=== PATIENT | male | born 1975 | race Caucasian/White ===

== ENCOUNTER 2021-04-08 09:45 | Emergency (ER) | payer BC ==
[~2021-04-08] VITALS: Ht 183 cm; Wt 113.4 kg
--- NOTE | 2021-04-08 10:37 | Diagnostic Imaging Report ---
CLINICAL INDICATION: Patient rolled right ankle today. Patient has ankle pain. EXAMS: 1: X-ray of the right tibia and fibula, 2 views. 2: X-ray of the right ankle, 3 views. COMPARISON: None. FINDINGS: There is a segmental fracture of the distal diaphysis of the fibula and distal one/third to one/half of the fibular diaphysis. There is slight lateral displacement of the distal fracture fragment and medial displacement of the most proximal fracture fragment. There is slight posterior apex angulation noted in the fracture region. There is chronic appearing calcification seen distal to the medial malleolar region. There is asymmetry of the ankle mortise with widening of the medial mortise joint region and widening of the syndesmotic joint measuring roughly 11 mm. There are calcifications seen adjacent to the plantar aspect of the mid foot on the lateral view of the ankle. Donor sites are not seen. I am unable to exclude fracture fragments. There is amorphous calcification seen posteriorly adjacent to the posterior malleolus region with donor site unknown and chronicity unknown. There is no other fracture involving the proximal fibula or involving the tibia. The medial malleolus is intact. The visualized portions of the knee are unremarkable. There is a hypertrophic calcaneal spur at the Achilles attachment. IMPRESSION: 1: There is a slightly displaced segmental fracture involving the distal fibular diaphysis. 2: There is abnormal widening of the medial ankle mortise joint and widening of the syndesmotic joint, concerning for ligamentous injury. 3: There are small calcifications seen adjacent to the plantar aspect of the midfoot. Donor sites are not seen. Small fracture fragments cannot be completely excluded. A CT scan of the ankle may help better evaluate. 4: There is amorphous calcification seen posteriorly adjacent to the posterior malleolar region of unknown age. Dictated by: Dictated on workstation # [id number]
--- NOTE | 2021-04-08 11:34 | Diagnostic Imaging Report ---
Clinical indication: Preop chest x-ray for right ankle fracture Exam: Portable chest x-ray upright view. Comparisons: None. Findings: Lungs/pleura: Lungs are clear. There is no pneumothorax. There is no pleural effusion. Mediastinum: Unremarkable. Pulmonary vasculature: Unremarkable. Heart: Unremarkable. Bones/extrathoracic soft tissue: Anterior cervical disk fusion hardware is partially visualized. Impression: There is no radiographic evidence of acute cardiopulmonary process. Dictated by: Dictated on workstation # [id number]
[2021-04-08 11:48] LABS: BASOPHILS # (AUTO) 0.1 10^3/uL (0.0-0.1); BASOPHILS % (AUTO) 1 % (0-10); EOSINOPHILS # (AUTO) 0.1 10^3/uL (0.0-0.3); EOSINOPHILS % (AUTO) 1 % (0-10); HEMATOCRIT 48 % (40-54); HEMOGLOBIN 16.3 g/dL (13.3-17.7); LYMPHOCYTES % (AUTO) 13 % (12-44); MEAN CORPUSCULAR HEMOGLOBIN 29 pg (25-34); MEAN CORPUSCULAR HGB CONC 34 g/dL (32-36); MEAN CORPUSCULAR VOLUME 85 fL (80-99); MEAN PLATELET VOLUME 10.2 fL (9.0-12.2); MONOCYTES % (AUTO) 6 % (0-12); NEUTROPHILS # (AUTO) 12.9 10^3/uL (1.8-7.8); NEUTROPHILS % (AUTO) 80 % (42-75); PLATELET COUNT 285 10^3/uL (130-400); WHITE BLOOD COUNT 16.3 10^3/uL (4.3-11.0)
[2021-04-08 11:49] LABS: ALBUMIN 4.5 GM/DL (3.2-4.5); POTASSIUM 4.4 MMOL/L (3.6-5.0)
[2021-04-08 11:50] LABS: CALCIUM 9.6 MG/DL (8.5-10.1)
[2021-04-08 11:51] LABS: INR 0.9 (0.8-1.4); PROTHROMBIN TIME PATIENT 12.7 SEC (12.2-14.7); TOTAL PROTEIN 7.7 GM/DL (6.4-8.2)
[2021-04-08 11:53] LABS: BILIRUBIN,TOTAL 0.4 MG/DL (0.1-1.0)
[2021-04-08 11:55] LABS: CREATININE SERUM 1.01 MG/DL (0.60-1.30)
[2021-04-08 12:19] LABS: BAND NEUTROPHILS 0 %; BASOPHILS % (MANUAL) 0 %; EOSINOPHILS % (MANUAL) 1 %; LYMPHOCYTES % (MANUAL) 18 %; MONOCYTES % (MANUAL) 4 %; NEUTROPHILS % (MANUAL) 77 %
[2021-04-08 12:20] LABS: RBC MORPH NORMAL
[2021-04-08] MEDS ORDERED: HYDROcodone/APAP 5 MG/325 MG (LORTAB) TAB PO ONE (12:45)
[2021-04-08] MEDS ORDERED: ACHD5005 PO (13:08)
--- NOTE | 2021-04-08 13:08 | ED Lower Extremity ---
General Chief Complaint: Lower Extremity Stated Complaint: R ANKLE INJ Nursing Triage Note: PT TO FT1 VIA WC WITH C/O RT ANKLE PAIN AFTER FALL. PT REPORTS HE FELL AT 0900 THIS MORNING WHEN HE ACCIDENTALLY STEPPED ON A PIPE W L FOOT AND USED RT LEG TO TRY TO CATCH HIMSELF. Source: patient Exam Limitations: no limitations History of Present Illness Date Seen by Provider: Apr 08, 2021 Time Seen by Provider: 09:50 Initial Comments This 46-year-old gentleman presents to the emergency room with complaints of right ankle pain and swelling after slipping and falling backward onto his foot and ankle while working at home. He has marked swelling of the right ankle with a generalized pain in the ankle region. He denies any other injuries. Allergies and Home Medications Allergies Coded Allergies: No Known Drug Allergies (Unverified , 09/13/12) Home Medications Hydrocodone/Acetaminophen 1 Each Tablet, 1-2 TAB PO Q4H PRN for PAIN-MODERATE (5-7) Prescribed by: CHIDI ADAMS on 04/08/21 1309 Patient Home Medication List Home Medication List Reviewed: Yes Review of Systems Constitutional: no symptoms reported EENTM: no symptoms reported Respiratory: no symptoms reported Cardiovascular: no symptoms reported Gastrointestinal: no symptoms reported Genitourinary: no symptoms reported Musculoskeletal: see HPI Skin: no symptoms reported Psychiatric/Neurological: No Symptoms Reported Past Chgaswo-Crgjus-Jzlhxf Hx Patient Social History Tobacco Use?: Yes Tobacco type used: Cigarettes Smoking Status: Current Everyday Smoker Substance use?: No Alcohol Use?: No Pt feels they are or have been: No Past Medical History Surgeries: No Respiratory: No Cardiac: No Neurological: No Reproductive Disorders: No Genitourinary: No Gastrointestinal: No Musculoskeletal: No Endocrine: No HEENT: No Cancer: No Psychosocial: No Physical Exam Vital Signs Vital Signs - First Documented 04/08/21 09:51 Temp 36.4 Pulse 81 Resp 18 B/P (MAP) 167/110 (129) Pulse Ox 97 O2 Delivery Room Air Capillary Refill : Less Than 3 Seconds Height, Weight, BMI Height: '" Weight: lbs. oz. kg; 33.00 BMI Method: General Appearance: WD/WN, no apparent distress HEENT: normal ENT inspection Respiratory: normal breath sounds, no respiratory distress Knees: right knee non-tender, right knee normal inspection, right knee normal range of motion, right knee no evidence of injury Ankles: right ankle bone tenderness, right ankle limited range of motion, right ankle pain, right ankle soft tissue tenderness, right ankle other Feet: right foot non-tender, right foot normal inspection, right foot normal range of motion, right foot no evidence of injury, right foot other (Palpable pedal pulse. Sensation intact. 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, no motor/sensory deficits, alert, normal mood/affect, oriented x 3 Skin: normal color, warm/dry Progress/Results/Core Measures Results/Orders Lab Results Laboratory Tests Test 04/08/21 11:30 Range/Units White Blood Count 16.3 H 4.3-11.0 10^3/uL Red Blood Count 5.63 H 4.30-5.52 10^6/uL Hemoglobin 16.3 13.3-17.7 g/dL Hematocrit 48 40-54 % Mean Corpuscular Volume 85 80-99 fL Mean Corpuscular Hemoglobin 29 25-34 pg Mean Corpuscular Hemoglobin Concent 34 32-36 g/dL Red Cell Distribution Width 13.2 10.0-14.5 % Platelet Count 285 130-400 10^3/uL Mean Platelet Volume 10.2 9.0-12.2 fL Immature Granulocyte % (Auto) 0 % Neutrophils (%) (Auto) 80 H 42-75 % Lymphocytes (%) (Auto) 13 12-44 % Monocytes (%) (Auto) 6 0-12 % Eosinophils (%) (Auto) 1 0-10 % Basophils (%) (Auto) 1 0-10 % Neutrophils # (Auto) 12.9 H 1.8-7.8 10^3/uL Lymphocytes # (Auto) 2.0 1.0-4.0 10^3/uL Monocytes # (Auto) 1.0 0.0-1.0 10^3/uL Eosinophils # (Auto) 0.1 0.0-0.3 10^3/uL Basophils # (Auto) 0.1 0.0-0.1 10^3/uL Immature Granulocyte # (Auto) 0.1 0.0-0.1 10^3/uL Neutrophils % (Manual) 77 % Lymphocytes % (Manual) 18 % Monocytes % (Manual) 4 % Eosinophils % (Manual) 1 % Basophils % (Manual) 0 % Band Neutrophils 0 % Blood Morphology Comment NORMAL Prothrombin Time 12.7 12.2-14.7 SEC INR Comment 0.9 0.8-1.4 Activated Partial Thromboplast Time 29 24-35 SEC Sodium Level 138 135-145 MMOL/L Potassium Level 4.4 3.6-5.0 MMOL/L Chloride Level 106 98-107 MMOL/L Carbon Dioxide Level 19 L 21-32 MMOL/L Anion Gap 13 5-14 MMOL/L Blood Urea Nitrogen 13 7-18 MG/DL Creatinine 1.01 0.60-1.30 MG/DL Estimat Glomerular Filtration Rate 79 BUN/Creatinine Ratio 13 Glucose Level 110 H 70-105 MG/DL Calcium Level 9.6 8.5-10.1 MG/DL Corrected Calcium 9.2 8.5-10.1 MG/DL Total Bilirubin 0.4 0.1-1.0 MG/DL Aspartate Amino Transf (AST/SGOT) 17 5-34 U/L Alanine Aminotransferase (ALT/SGPT) 24 0-55 U/L Alkaline Phosphatase 78 40-136 U/L Total Protein 7.7 6.4-8.2 GM/DL Albumin 4.5 3.2-4.5 GM/DL My Orders Orders - CHIDI SKAGGS MD Ankle, Right, 3 Views (04/08/21 09:59) Tibia/Fibula, Right, 2 Views (04/08/21 10:07) Ed Iv/Invasive Line Start (04/08/21 11:11) Ekg Tracing (04/08/21 11:11) Cbc With Automated Diff (04/08/21 11:11) Comprehensive Metabolic Panel (04/08/21 11:11) Protime With Inr (04/08/21 11:11) Partial Thromboplastin Time (04/08/21 11:11) Chest 1 View, Ap/Pa Only (04/08/21 11:11) Manual Differential (04/08/21 11:30) Hydrocodone/Apap 5/325 Tablet (Lortab 5 (04/08/21 12:45) Vital Signs/I&O 04/08/21 04/08/21 09:51 13:21 Temp 36.4 Pulse 81 78 Resp 18 18 B/P (MAP) 167/110 (129) 155/101 Pulse Ox 97 99 O2 Delivery Room Air Room Air Blood Pressure Mean: 129 Progress Progress Note : Progress Note Patient was found to have a comminuted mildly displaced fibula fracture but also widening of the ankle mortise. Dr. Andrea was consulted as orthopedist on-call. He recommended surgery. Unfortunately, surgery reportedly could not be performed today due to uncertainty about appropriate hardware pieces in stock. Three-way splint was applied and crutches were provided. Hydrocodone was given for pain. Initial ECG Impression Date: Apr 08, 2021 Initial ECG Impression Time: 11:21 Initial ECG Rate: 76 Initial ECG Rhythm: Normal Sinus Initial ECG Intervals: Normal Initial ECG Impression: Normal Comment Normal sinus rhythm with no ST elevation or depression. No abnormal intervals or axis deviation. Departure Impression Primary Impression: Closed right ankle fracture Qualified Codes: S82.891A - Other fracture of right lower leg, initial encounter for closed fracture Disposition: 01 HOME, SELF-CARE Condition: Improved Departure-Patient Inst. Referrals: NO,LOCAL PHYSICIAN (PCP) Primary Care Physician DISHA ANDREA MD, MICHAEL P MD Patient Instructions: Ankle Fracture, Splint Care Add. Discharge Instructions: Keep the clean and dry. Do not remove the splint. Do not bear weight on the right foot. Use crutches to ambulate. Elevate your foot as much as possible on a soft surface such as a stack of pillows or blankets. Applying ice over the splint may also help reduce pain and swelling. When applying ice do not get the splint wet. Call Dr. Cao or Dr. Andrea as soon as possible to arrange follow-up as you will likely need surgery. Return to care if you have worsening symptoms. Call if you have questions or concerns. Use your pain medication as prescribed. You may wish to use a stool softener while on this pain medication as it may cause constipation. All discharge instructions reviewed with patient and/or family. Voiced understanding. Scripts Hydrocodone/Acetaminophen (Hydrocodone-Acetamin 5-325 mg) 1 Each Tablet 1-2 TAB PO Q4H PRN for PAIN-MODERATE (5-7), #40 TAB Prov: CHIDI SKAGGS MD 04/08/21 Copy Copies To 1: SANTA CAO MD Copies To 2: DISHA ANDREA MD, JOSHUA T MD Apr 08, 2021 13:08
[2021-04-08 13:21] VITALS: BP 155/101
== END 2021-04-08 13:21 | disposition home or self-care (01) ==
LOC: EDUNIT# 09:45 → ER 09:47
DX: S82.831A Other fracture of upper and lower end of right fibula, initial encounter for closed fracture (principal); F17.210 Nicotine dependence, cigarettes, uncomplicated; W01.0XXA Fall on same level from slipping, tripping and stumbling without subsequent striking against object, initial encounter; Y92.009 Unspecified place in unspecified non-institutional (private) residence as the place of occurrence of the external cause
CPT/HCPCS: 29505; 36415; 71045; 73590; 73610; 80053; 85007; 85027; 85610; 85730; 93005